=== PATIENT | male | born 1975 | race Caucasian/White ===

== ENCOUNTER 2017-12-12 11:39 | Emergency (ER) | payer MEDICAID ==
[~2017-12-12] VITALS: Ht 154.9 cm; Wt 86.2 kg
[2017-12-12 11:46] VITALS: BP_SYST 142
[2017-12-12 13:20] VITALS: BP_SYST 138
== END 2017-12-12 13:20 | disposition home or self-care (01) ==
LOC: SED 11:39
DX: T78.40XA Allergy, unspecified, initial encounter (principal); R21 Rash and other nonspecific skin eruption; X58.XXXA Exposure to other specified factors, initial encounter
CPT/HCPCS: 99283